=== PATIENT | female | born 1940 | race Caucasian/White ===

== ENCOUNTER 2016-12-13 20:28 | Inpatient (IN) ==
[2016-12-14] MEDS ORDERED: SODIUM CHLORIDE 0.45% 1,000 ML IV ONE (00:04)
[2016-12-14] MEDS ORDERED: ONDANSETRON 4 MG/2 ML VIAL IV PRN (00:55)
[2016-12-14] MEDS ORDERED: ACETAMINOPHEN 500 MG TABLET PO PRN (01:00)
[2016-12-14] MEDS ORDERED: GLUCAGON 1 MG VIAL IM PRN (01:03)
[2016-12-14] MEDS ORDERED: DEXTROSE 50% 25 GM/50 ML VIAL IV PRN (01:03)
[2016-12-14] MEDS ORDERED: SODIUM CHLORIDE 0.9% 1,000 ML IV STA (01:25)
[2016-12-14] MEDS ORDERED: ASPIRIN 325 MG TABLET PO STA (01:39)
[2016-12-14 01:43] LABS: Apearance,Urine CLEAR (Clear); Bacteria,Urine Occasional /HPF (Few); Bilirubin,Urine Negative (Negative); Blood, Urine Small mg/dL (Negative); Glucose,Urine (UA) 50 mg/dL (Negative); Ketones,Urine Negative (Negative); Mucus,Urine Occasional /LPF (Occasional); Nitrite,Urine Negative (Negative); Protein,Urine 30 MG/DL; RBC,Urine 1 /HPF (0-4); Squamous Epithelial Cell,Urine Occasional /HPF (0-10); Urine Color Yellow (Yellow); Urine Specific Gravity 1.012 (1.001-1.035); Urine Urobilinogen < 2.0 EU/DL (0.2-1.0); WBC,Urine 3 /HPF (0-6)
[2016-12-14] MEDS ORDERED: INSULIN LISPRO 100 UNIT/ML SUBCUT ONE (02:51)
[2016-12-14] MEDS ORDERED: SODIUM CHLORIDE 0.9% 500 ML IV ONE (04:24)
[2016-12-14 04:39] LABS: Basophils % 0.1 % (0.0-0.8); Eosinophils # 0.1 10*3/uL (0.0-0.87); Eosinophils % 1.2 % (0.00-10.9); Hematocrit 25.6 VOL% (35.7-47.0); Hemoglobin 7.2 GM/DL (12.0-16.0); Immature Granulocytes % 0.7 %; Immature Granulocytes Absolute 0.05 #; Lymphocytes # 0.9 10*3/uL (1.4-4.0); Mean Corpuscular HGB Conc 28.1 GM/DL (32-36); Mean Corpuscular Hemoglobin 31 PG (27-34); Mean Corpuscular Volume 108.5 FL (87-102); Mean Platelet Volume 12.1 FL (9.6-12.0); Monocytes # 0.4 10*3/uL (0.11-0.8); Monocytes % 5.2 % (1.7-12.7); Neutrophils % 80.8 % (38.7-73.9); Platelet Count 146 T/CUMM (130-400); Red Blood Count 2.36 MC/CUMM (3.8-5.5); Red Cell Distribution Width 15.5 % (9.3-17.3); White Blood Count 7.5 T/CUMM (4-12)
[2016-12-14 04:53] LABS: Calcium 8.1 MG/DL (8.5-10.1)
[2016-12-14 04:54] LABS: Osmolality,Calculated 328.7 MOS/KG (273-304); Potassium 3.9 MMOL/L (3.5-5.1)
[2016-12-14 04:55] LABS: Burr Cells Slight; Elliptocytes Few; Giant Platelets Few; Hypochromasia 1+; Platelet Estimate Normal
[2016-12-14] MEDS: INSULIN LISPRO 100 UNIT/ML SUBCUT SCH ×4 (06:13→21:33)
[2016-12-14 06:20] LABS: Basophils % 0.3 % (0.0-0.8); Eosinophils # 0.1 10*3/uL (0.0-0.87); Eosinophils % 1.2 % (0.00-10.9); Hematocrit 25.7 VOL% (35.7-47.0); Immature Granulocytes % 0.8 %; Immature Granulocytes Absolute 0.06 #; Lymphocytes # 0.9 10*3/uL (1.4-4.0); Lymphocytes % 12.2 % (21.3-54.2); Mean Corpuscular Hemoglobin 30 PG (27-34); Mean Corpuscular Volume 108.4 FL (87-102); Monocytes # 0.4 10*3/uL (0.11-0.8); Monocytes % 4.8 % (1.7-12.7); Neutrophils # 6.2 10*3/uL (1.4-7.4); Neutrophils % 80.7 % (38.7-73.9); Platelet Count 138 T/CUMM (130-400); Red Blood Count 2.37 MC/CUMM (3.8-5.5); Red Cell Distribution Width 15.4 % (9.3-17.3); White Blood Count 7.6 T/CUMM (4-12)
[2016-12-14 06:21] LABS: Hemoglobin 7.2 GM/DL (12.0-16.0)
[2016-12-14] MEDS ORDERED: SODIUM CHLORIDE 0.9% 500 ML IV STA (06:55)
[2016-12-14 07:42] LABS: Folate 23.2 NG/ML (5.4-24.0); Hemoglobin A1 (Alkaline) 97.7 % (96.5-98.5); Hemoglobin A2 (Alkaline) 2.3 % (1.5-3.5); Vitamin B12 359 PG/ML (211-911)
[2016-12-14] MEDS ORDERED: HEPARIN 5,000 UNIT/1 ML VIAL SUBCUT SCH (09:00)
[2016-12-14 09:45] LABS: Calcium 7.9 MG/DL (8.5-10.1); Osmolality,Calculated 321.2 MOS/KG (273-304); Potassium 3.7 MMOL/L (3.5-5.1)
[2016-12-14 10:06] LABS: Sedimentation Rate-Westergren 65 MM/HR (0-30)
[2016-12-14] MEDS ORDERED: HEPARIN 5,000 UNIT/1 ML VIAL ONE (10:39)
[2016-12-14] MEDS ORDERED: ASPIRIN CHEW 81 MG TABLET PO ONE (10:39)
[2016-12-14] MEDS: ASPIRIN CHEW 81 MG TABLET PO SCH (10:47)
[2016-12-14] MEDS ORDERED: ALBUTEROL 2.5 MG/3 ML NEB RESP TX PRN (12:05)
[2016-12-14] MEDS ORDERED: SODIUM CHLORIDE 0.45% 1,000 ML IV SCH (12:30)
[2016-12-14] MEDS ORDERED: DONEPEZIL 10 MG TABLET PO SCH (13:00)
[2016-12-14] MEDS ORDERED: LEVOFLOXACIN INJ 750 MG in PREMIX 1 EACH IV SCH (13:00)
[2016-12-14] MEDS ORDERED: SODIUM CHLORIDE 0.9% 250 ML IV PRN (13:01)
[2016-12-14] MEDS: ALBUTEROL/IPRATROPIUM 3 ML NEB RESP TX SCH ×2 (13:17→20:34)
[2016-12-14] MEDS: BENZONATATE 100 MG CAPSULE PO SCH ×2 (15:01→21:33)
[2016-12-14] MEDS ORDERED: FUROSEMIDE 40 MG/4 ML VIAL IV ONE (17:13)
[2016-12-14] MEDS: SODIUM CHLORIDE 0.45% 1,000 ML IV SCH (17:32)
[2016-12-14] MEDS: HALOPERIDOL 5 MG/ML AMP IV PRN (20:22)
[2016-12-14] MEDS ORDERED: METOPROLOL TARTRATE 25 MG TABLET PO SCH (21:00)
[2016-12-14] MEDS: SIMVASTATIN 20 MG TABLET PO SCH (21:33)
[2016-12-14] MEDS ORDERED: ZIPRASIDONE 20 MG/1 ML VIAL IM PRN (22:41)
[2016-12-15] MEDS: ALBUTEROL/IPRATROPIUM 3 ML NEB RESP TX SCH ×5 (01:15→20:28)
[2016-12-15 04:56] LABS: Basophils % 0.2 % (0.0-0.8); Eosinophils % 0.2 % (0.00-10.9); Hematocrit 39.8 VOL% (35.7-47.0); Hemoglobin 12.4 GM/DL (12.0-16.0); Immature Granulocytes % 0.5 %; Immature Granulocytes Absolute 0.05 #; Lymphocytes # 0.6 10*3/uL (1.4-4.0); Lymphocytes % 6.5 % (21.3-54.2); Mean Corpuscular HGB Conc 31.2 GM/DL (32-36); Mean Corpuscular Hemoglobin 29 PG (27-34); Mean Corpuscular Volume 94.1 FL (87-102); Mean Platelet Volume 12.6 FL (9.6-12.0); Monocytes # 0.6 10*3/uL (0.11-0.8); Monocytes % 5.6 % (1.7-12.7); Neutrophils # 8.6 10*3/uL (1.4-7.4); Platelet Count 134 T/CUMM (130-400); Red Blood Count 4.23 MC/CUMM (3.8-5.5); Red Cell Distribution Width 17.3 % (9.3-17.3); White Blood Count 9.9 T/CUMM (4-12)
[2016-12-15 05:26] LABS: Calcium 8.1 MG/DL (8.5-10.1); Magnesium 1.7 MG/DL (1.8-2.4); Osmolality,Calculated 322.2 MOS/KG (273-304)
[2016-12-15 05:32] LABS: Risk Ratio 2.77
[2016-12-15 05:39] LABS: Burr Cells Slight; Giant Platelets Few; Hypochromasia 1+; Lymphocytes 7 % (20-55); Ovalocytes Slight; Platelet Estimate Normal; Segmented Neutrophils 88 % (50-85); Total Cells Counted 100
[2016-12-15] MEDS: SODIUM CHLORIDE 0.45% 1,000 ML IV SCH (09:19)
[2016-12-15] MEDS: INSULIN LISPRO 100 UNIT/ML SUBCUT SCH ×4 (09:20→21:32)
[2016-12-15] MEDS: HALOPERIDOL 5 MG/ML AMP IV PRN (09:22)
[2016-12-15] MEDS: BENZONATATE 100 MG CAPSULE PO SCH ×3 (09:22→21:31)
[2016-12-15] MEDS: ASPIRIN CHEW 81 MG TABLET PO SCH (09:22)
[2016-12-15] MEDS: methylPREDNISolone SOD SUC 40 MG/1 ML VIAL IV SCH ×3 (10:21→21:31)
[2016-12-15] MEDS: PANTOPRAZOLE 40 MG VIAL IV SCH (10:22)
[2016-12-15] MEDS: SIMVASTATIN 20 MG TABLET PO SCH (21:31)
[2016-12-15] MEDS: SODIUM CHLORIDE 23.4% CONC INJ 38.5 MEQ in STERILE WATER INJ 1,000 ML IV SCH (21:31)
[2016-12-16] MEDS: ALBUTEROL/IPRATROPIUM 3 ML NEB RESP TX SCH ×7 (00:23→22:05)
[2016-12-16] MEDS: methylPREDNISolone SOD SUC 40 MG/1 ML VIAL IV SCH ×4 (04:16→23:42)
[2016-12-16] MEDS: BENZONATATE 100 MG CAPSULE PO SCH ×4 (08:30→23:36)
[2016-12-16] MEDS: ASPIRIN CHEW 81 MG TABLET PO SCH (08:30)
[2016-12-16] MEDS: INSULIN LISPRO 100 UNIT/ML SUBCUT SCH ×4 (08:30→23:40)
[2016-12-16] MEDS: PANTOPRAZOLE 40 MG VIAL IV SCH (08:30)
[2016-12-16] MEDS: SODIUM CHLORIDE 23.4% CONC INJ 38.5 MEQ in STERILE WATER INJ 1,000 ML IV SCH ×2 (08:54→10:48)
[2016-12-16 09:41] LABS: Calcium 8.8 MG/DL (8.5-10.1); Osmolality,Calculated 318.1 MOS/KG (273-304); Potassium 4.2 MMOL/L (3.5-5.1)
[2016-12-16 09:46] LABS: Basophils % 0.1 % (0.0-0.8); Hematocrit 40.5 VOL% (35.7-47.0); Immature Granulocytes % 0.6 %; Immature Granulocytes Absolute 0.05 #; Lymphocytes # 0.3 10*3/uL (1.4-4.0); Lymphocytes % 3.7 % (21.3-54.2); Mean Corpuscular HGB Conc 32.1 GM/DL (32-36); Mean Corpuscular Hemoglobin 30 PG (27-34); Mean Corpuscular Volume 93.8 FL (87-102); Mean Platelet Volume 12.2 FL (9.6-12.0); Monocytes # 0.1 10*3/uL (0.11-0.8); Monocytes % 1.1 % (1.7-12.7); Neutrophils # 8.5 10*3/uL (1.4-7.4); Neutrophils % 94.5 % (38.7-73.9); Platelet Count 201 T/CUMM (130-400); Red Blood Count 4.32 MC/CUMM (3.8-5.5); Red Cell Distribution Width 16.9 % (9.3-17.3)
[2016-12-16 10:04] LABS: Giant Platelets Few; Lymphocytes 2 % (20-55); Platelet Estimate Adequate; Segmented Neutrophils 96 % (50-85); Total Cells Counted 100
[2016-12-16 10:20] LABS: Calcium 8.9 MG/DL (8.5-10.1); Magnesium 1.8 MG/DL (1.8-2.4); Osmolality,Calculated 318.9 MOS/KG (273-304)
[2016-12-16] MEDS: FUROSEMIDE 40 MG/4 ML VIAL IV SCH (13:18)
[2016-12-16] MEDS: LEVOFLOXACIN INJ 500 MG in PREMIX 1 EACH IV SCH (13:18)
[2016-12-16] MEDS ORDERED: DEXTROSE 5% NACL 0.22% 1,000 ML IV SCH (13:30)
[2016-12-16] MEDS ORDERED: DIGOXIN 0.5 MG/2 ML AMP IV ONE ×3 (21:28→21:49)
[2016-12-16] MEDS ORDERED: LEVALBUTEROL 1.25 MG/3 ML NEB RESP TX STA (21:46)
[2016-12-16] MEDS ORDERED: DILTIAZEM 50 MG/10 ML VIAL IV ONE ×3 (21:56→22:15)
[2016-12-16] MEDS ORDERED: SODIUM CHLORIDE 23.4% CONC INJ 38.5 MEQ in STERILE WATER INJ 1,000 ML IV ONE ×2 (22:00→23:00)
[2016-12-16] MEDS ORDERED: ETOMIDATE 20 MG/10 ML VIAL IV ONE ×2 (22:02→22:24)
[2016-12-16] MEDS ORDERED: SUCCINYLCHOLINE 200 MG/10 ML VIAL ONE (22:02)
[2016-12-16] MEDS ORDERED: HEPARIN/NACL 0.9% 2 UNITS/ML 500 ML IV ONE (22:05)
[2016-12-16] MEDS: SIMVASTATIN 20 MG TABLET PO SCH (22:16)
[2016-12-16] MEDS ORDERED: DILTIAZEM 100 MG VIAL.ADD IV ONE (22:17)
[2016-12-16] MEDS ORDERED: SUCCINYLCHOLINE 200 MG/10 ML VIAL IV ONE (22:24)
[2016-12-16] MEDS ORDERED: MIDAZOLAM 2 MG/2 ML VIAL IV ONE (22:28)
[2016-12-16] MEDS ORDERED: fentaNYL 100 MCG/2 ML VIAL IV ONE (22:28)
[2016-12-16] MEDS ORDERED: fentaNYL 100 MCG/2 ML VIAL ONE (22:28)
[2016-12-16] MEDS ORDERED: MIDAZOLAM 10 MG/2 ML VIAL ONE (22:28)
[2016-12-16] MEDS ORDERED: RACEPINEPHRINE 0.5 ML NEB RESP TX ONE (22:30)
[2016-12-16] MEDS ORDERED: DILTIAZEM INJ 100 MG in SODIUM CHLORIDE 0.9% 100 ML IV SCH (22:30)
[2016-12-16] MEDS ORDERED: ALBUTEROL/IPRATROPIUM 3 ML NEB RESP TX ONE (22:30)
[2016-12-16] MEDS ORDERED: NOREPINEPHRINE 8 MG in SODIUM CHLORIDE 0.9% 242 ML IV PRN (22:56)
[2016-12-16] MEDS ORDERED: SODIUM CHLORIDE 23.4% CONC INJ 38.5 MEQ in STERILE WATER INJ 1,000 ML IV SCH (23:00)
[2016-12-16 23:09] LABS: ABG Base Excess -12.1 MMOL/L (-2.5-2.5); ABG HCO3 13.4 MMOL/L (20-26); ABG Oxygen Saturation 99.3 % (95-100); ABG PCO2 29.7 MM HG (35-48); ABG PH 7.272 (7.35-7.45); ABG PO2 385.2 MM HG (80-95); ABG TCO2 14.3 MMOL/L (23-27)
[2016-12-16] MEDS ORDERED: LINEZOLID 600 MG/300 ML PREMIX IV ONE (23:09)
[2016-12-16 23:14] LABS: Basophils % 0.1 % (0.0-0.8); Hematocrit 36.8 VOL% (35.7-47.0); Immature Granulocytes % 0.6 %; Immature Granulocytes Absolute 0.07 #; Lymphocytes # 0.4 10*3/uL (1.4-4.0); Lymphocytes % 3.2 % (21.3-54.2); Mean Corpuscular HGB Conc 32.6 GM/DL (32-36); Mean Corpuscular Hemoglobin 30 PG (27-34); Mean Corpuscular Volume 92.9 FL (87-102); Mean Platelet Volume 12.4 FL (9.6-12.0); Monocytes # 0.4 10*3/uL (0.11-0.8); Monocytes % 3.4 % (1.7-12.7); Neutrophils # 10.1 10*3/uL (1.4-7.4); Neutrophils % 92.7 % (38.7-73.9); Platelet Count 194 T/CUMM (130-400); Red Blood Count 3.96 MC/CUMM (3.8-5.5); Red Cell Distribution Width 17.3 % (9.3-17.3); White Blood Count 10.9 T/CUMM (4-12)
[2016-12-16 23:30] LABS: Lactic Acid 1.3 MMOL/L (0.4-2.0)
[2016-12-16] MEDS: fentaNYL INJ 1,250 MCG in SODIUM CHLORIDE 0.9% 225 ML IV SCH (23:30)
[2016-12-16] MEDS: MIDAZOLAM 100 MG in SODIUM CHLORIDE 0.9% 80 ML IV SCH (23:46)
[2016-12-17] MEDS ORDERED: INSULIN LISPRO 100 UNIT/ML SUBCUT SCH
[2016-12-17] MEDS: LINEZOLID INJ 600 MG in PREMIX 1 EACH IV SCH ×3 (00:33→23:37)
[2016-12-17 00:38] LABS: Albumin 2.8 G/DL (3.4-5.0); Bilirubin,Total 1.3 MG/DL (0.2-1.0); Total Protein 5.9 G/DL (6.4-8.3)
[2016-12-17 00:39] LABS: Potassium 3.6 MMOL/L (3.5-5.1)
[2016-12-17 00:40] LABS: CKMB % 1.1 %; Troponin I Only 0.818 NG/ML (0.00-0.045)
[2016-12-17 00:41] LABS: Calcium 7.6 MG/DL (8.5-10.1)
[2016-12-17] MEDS ORDERED: NOREPINEPHRINE 4 MG/4 ML VIAL IV ONE ×2 (01:06→01:07)
[2016-12-17] MEDS: NOREPINEPHRINE 16 MG in SODIUM CHLORIDE 0.9% 234 ML IV SCH (01:29)
[2016-12-17] MEDS: PIPERACILLIN/TAZOBACTAM 3,375 MG in SODIUM CHLORIDE 0.9% 100 ML IV SCH ×2 (01:55→14:57)
[2016-12-17] MEDS ORDERED: CALCIUM CHLORIDE 1,000 MG/10 ML SYRINGE IV ONE (02:52)
[2016-12-17] MEDS ORDERED: SODIUM CHLORIDE 0.9% 1,000 ML IV SCH (03:00)
[2016-12-17 03:19] LABS: ABG HCO3 11.3 MMOL/L (20-26); ABG Oxygen Saturation 98.3 % (95-100)
[2016-12-17 03:24] LABS: ABG PH 7.123 (7.35-7.45)
[2016-12-17] MEDS ORDERED: SODIUM BICARBONATE 50 MEQ/50 ML SYRINGE IV ONE ×2 (03:28→03:29)
[2016-12-17 03:54] LABS: Basophils % 0.1 % (0.0-0.8); Hematocrit 40.1 VOL% (35.7-47.0); Hemoglobin 12.7 GM/DL (12.0-16.0); Immature Granulocytes % 1.2 %; Lymphocytes # 0.3 10*3/uL (1.4-4.0); Lymphocytes % 1.7 % (21.3-54.2); Mean Corpuscular HGB Conc 31.7 GM/DL (32-36); Mean Corpuscular Hemoglobin 30 PG (27-34); Mean Corpuscular Volume 94.6 FL (87-102); Mean Platelet Volume 13.2 FL (9.6-12.0); Monocytes % 6.3 % (1.7-12.7); NRBC # 0.02 10*3/uL; Neutrophils # 14.8 10*3/uL (1.4-7.4); Neutrophils % 90.7 % (38.7-73.9); Platelet Count 247 T/CUMM (130-400); Red Blood Count 4.24 MC/CUMM (3.8-5.5); Red Cell Distribution Width 17.2 % (9.3-17.3); White Blood Count 16.3 T/CUMM (4-12)
[2016-12-17 03:57] LABS: Band Neutrophils 2 % (0-10); Lymphocytes 5 % (20-55); Platelet Estimate Normal; Segmented Neutrophils 90 % (50-85); Total Cells Counted 100
[2016-12-17 04:25] LABS: ABG Base Excess -15.1 MMOL/L (-2.5-2.5); ABG HCO3 14.2 MMOL/L (20-26); ABG Oxygen Saturation 95.1 % (95-100); ABG PCO2 46.2 MM HG (35-48); ABG PO2 90.4 MM HG (80-95); ABG TCO2 15.6 MMOL/L (23-27)
[2016-12-17 04:28] LABS: ABG PH 7.105 (7.35-7.45)
[2016-12-17] MEDS: methylPREDNISolone SOD SUC 40 MG/1 ML VIAL IV SCH ×4 (04:38→21:42)
[2016-12-17] MEDS: ALBUTEROL/IPRATROPIUM 3 ML NEB RESP TX SCH ×5 (04:38→21:03)
[2016-12-17] MEDS: METOPROLOL TARTRATE 5 MG/5 ML VIAL IV PRN ×3 (04:59→19:28)
[2016-12-17] MEDS ORDERED: SODIUM BICARB INJ 100 MEQ in DEXTROSE 5% 1,000 ML IV SCH (05:00)
[2016-12-17 05:07] LABS: Calcium 8.1 MG/DL (8.5-10.1); Magnesium 1.6 MG/DL (1.8-2.4); Osmolality,Calculated 301.5 MOS/KG (273-304)
[2016-12-17 05:43] LABS: Burr Cells 1+; Lymphocytes 2 % (20-55); Platelet Estimate Normal; Segmented Neutrophils 89 % (50-85); Total Cells Counted 100
[2016-12-17 05:48] LABS: INR 0.9; Partial Thromboplastin Time 26.6 SECS (0-40)
[2016-12-17 05:50] LABS: ABG Base Excess -13.5 MMOL/L (-2.5-2.5); ABG HCO3 12.7 MMOL/L (20-26); ABG Oxygen Saturation 99.2 % (95-100); ABG PCO2 30.8 MM HG (35-48); ABG PH 7.232 (7.35-7.45); ABG PO2 231.2 MM HG (80-95); ABG TCO2 13.6 MMOL/L (23-27)
[2016-12-17] MEDS ORDERED: MAGNESIUM SULF RIDER 4 GM in PREMIX 1 EACH IV PRN (05:50)
[2016-12-17] MEDS ORDERED: MAGNESIUM SULF RIDER 2 GM in PREMIX 1 EACH IV PRN (05:50)
[2016-12-17 07:14] LABS: Calcium 8.8 MG/DL (8.5-10.1); Magnesium 1.8 MG/DL (1.8-2.4); Osmolality,Calculated 307.2 MOS/KG (273-304); Potassium 4.1 MMOL/L (3.5-5.1)
[2016-12-17] MEDS: INSULIN LISPRO 100 UNIT/ML SUBCUT SCH ×4 (08:41→23:32)
[2016-12-17] MEDS: PANTOPRAZOLE 40 MG VIAL IV SCH (08:42)
[2016-12-17] MEDS: BENZONATATE 100 MG CAPSULE PO SCH ×3 (08:42→21:42)
[2016-12-17] MEDS: ASPIRIN CHEW 81 MG TABLET PO SCH (08:42)
[2016-12-17] MEDS: FUROSEMIDE 40 MG/4 ML VIAL IV SCH (08:42)
[2016-12-17] MEDS: levETIRAcetam INJ 500 MG in SODIUM CHLORIDE 0.9% 50 ML IV SCH ×2 (11:54→23:36)
[2016-12-17] MEDS: SODIUM BICARB INJ 100 MEQ in STERILE WATER INJ 1,000 ML IV SCH ×3 (12:42→23:46)
[2016-12-17] MEDS: SIMVASTATIN 20 MG TABLET PO SCH (21:42)
[2016-12-17] MEDS: MIDAZOLAM 100 MG in SODIUM CHLORIDE 0.9% 80 ML IV SCH (23:46)
[2016-12-17] MEDS: fentaNYL INJ 1,250 MCG in SODIUM CHLORIDE 0.9% 225 ML IV SCH (23:46)
[2016-12-18] MEDS: ALBUTEROL/IPRATROPIUM 3 ML NEB RESP TX SCH ×6 (00:15→20:31)
[2016-12-18] MEDS: METOPROLOL TARTRATE 5 MG/5 ML VIAL IV PRN (01:52)
[2016-12-18] MEDS: PIPERACILLIN/TAZOBACTAM 3,375 MG in SODIUM CHLORIDE 0.9% 100 ML IV SCH ×2 (01:53→14:09)
[2016-12-18] MEDS: SODIUM BICARB INJ 100 MEQ in STERILE WATER INJ 1,000 ML IV SCH ×3 (01:58→21:08)
[2016-12-18 02:12] LABS: ABG Base Excess -3.5 MMOL/L (-2.5-2.5); ABG HCO3 21.5 MMOL/L (20-26); ABG Oxygen Saturation 99.7 % (95-100); ABG PCO2 33.1 MM HG (35-48); ABG PH 7.399 (7.35-7.45); ABG TCO2 18.2 MMOL/L (23-27)
[2016-12-18] MEDS: NOREPINEPHRINE 16 MG in SODIUM CHLORIDE 0.9% 234 ML IV SCH (02:17)
[2016-12-18] MEDS ORDERED: METOPROLOL TARTRATE 5 MG/5 ML VIAL IV ONE (02:18)
[2016-12-18 02:51] LABS: Basophils % 0.1 % (0.0-0.8); Hematocrit 34.4 VOL% (35.7-47.0); Hemoglobin 11.9 GM/DL (12.0-16.0); Immature Granulocytes % 0.8 %; Immature Granulocytes Absolute 0.11 #; Lymphocytes # 0.2 10*3/uL (1.4-4.0); Lymphocytes % 1.3 % (21.3-54.2); Mean Corpuscular HGB Conc 34.6 GM/DL (32-36); Mean Corpuscular Hemoglobin 30 PG (27-34); Mean Corpuscular Volume 86.4 FL (87-102); Mean Platelet Volume 13.1 FL (9.6-12.0); Monocytes # 0.4 10*3/uL (0.11-0.8); Monocytes % 2.9 % (1.7-12.7); NRBC # 0.02 10*3/uL; Neutrophils # 12.4 10*3/uL (1.4-7.4); Neutrophils % 94.9 % (38.7-73.9); Platelet Count 198 T/CUMM (130-400); Red Blood Count 3.98 MC/CUMM (3.8-5.5); Red Cell Distribution Width 15.6 % (9.3-17.3); White Blood Count 13.1 T/CUMM (4-12)
[2016-12-18 02:56] LABS: Calcium 7.5 MG/DL (8.5-10.1); Osmolality,Calculated 294.2 MOS/KG (273-304); Potassium 3.3 MMOL/L (3.5-5.1)
[2016-12-18 03:18] LABS: Band Neutrophils 3 % (0-10); Lymphocytes 1 % (20-55); Segmented Neutrophils 95 % (50-85)
[2016-12-18 03:19] LABS: Burr Cells 1+; Ovalocytes 2+; Platelet Estimate Normal
[2016-12-18 03:20] LABS: Total Cells Counted 100
[2016-12-18] MEDS: INSULIN LISPRO 100 UNIT/ML SUBCUT SCH ×3 (05:10→18:24)
[2016-12-18] MEDS: methylPREDNISolone SOD SUC 40 MG/1 ML VIAL IV SCH ×4 (05:11→22:30)
[2016-12-18] MEDS ORDERED: METOPROLOL SUCCINATE XL 25 MG TABLET PO SCH (09:00)
[2016-12-18] MEDS: PANTOPRAZOLE 40 MG VIAL IV SCH (09:54)
[2016-12-18] MEDS: FUROSEMIDE 40 MG/4 ML VIAL IV SCH (09:57)
[2016-12-18] MEDS: ASPIRIN CHEW 81 MG TABLET PO SCH (10:04)
[2016-12-18] MEDS: BENZONATATE 100 MG CAPSULE PO SCH ×3 (10:06→21:07)
[2016-12-18] MEDS: levETIRAcetam INJ 500 MG in SODIUM CHLORIDE 0.9% 50 ML IV SCH (12:57)
[2016-12-18] MEDS: LINEZOLID INJ 600 MG in PREMIX 1 EACH IV SCH (13:54)
[2016-12-18] MEDS: LEVOFLOXACIN INJ 500 MG in PREMIX 1 EACH IV SCH (14:08)
[2016-12-18] MEDS ORDERED: FUROSEMIDE 100 MG/10 ML VIAL IV ONE (15:27)
[2016-12-18] MEDS ORDERED: POTASSIUM CHLORIDE RIDER 20 MEQ in PREMIX 1 EACH IV PRN (16:02)
[2016-12-18] MEDS ORDERED: DIGOXIN 0.5 MG/2 ML AMP IV ONE (16:11)
[2016-12-18] MEDS: SIMVASTATIN 20 MG TABLET PO SCH (21:07)
[2016-12-18] MEDS: fentaNYL INJ 1,250 MCG in SODIUM CHLORIDE 0.9% 225 ML IV SCH ×2 (21:18→23:21)
[2016-12-18] MEDS: MIDAZOLAM 100 MG in SODIUM CHLORIDE 0.9% 80 ML IV SCH ×2 (21:20→23:21)
[2016-12-19] MEDS: ALBUTEROL/IPRATROPIUM 3 ML NEB RESP TX SCH ×7 (00:13→21:58)
[2016-12-19] MEDS: INSULIN LISPRO 100 UNIT/ML SUBCUT SCH ×4 (01:19→17:03)
[2016-12-19] MEDS: levETIRAcetam INJ 500 MG in SODIUM CHLORIDE 0.9% 50 ML IV SCH ×2 (01:21→11:22)
[2016-12-19] MEDS: LINEZOLID INJ 600 MG in PREMIX 1 EACH IV SCH ×2 (01:21→13:22)
[2016-12-19] MEDS: PIPERACILLIN/TAZOBACTAM 3,375 MG in SODIUM CHLORIDE 0.9% 100 ML IV SCH ×2 (01:22→15:36)
[2016-12-19] MEDS: NOREPINEPHRINE 16 MG in SODIUM CHLORIDE 0.9% 234 ML IV SCH (01:30)
[2016-12-19] MEDS: METOPROLOL TARTRATE 5 MG/5 ML VIAL IV PRN (03:35)
[2016-12-19] MEDS: methylPREDNISolone SOD SUC 40 MG/1 ML VIAL IV SCH ×3 (04:48→15:37)
[2016-12-19 05:36] LABS: ABG Base Excess 3.8 MMOL/L (-2.5-2.5); ABG HCO3 27.6 MMOL/L (20-26); ABG Oxygen Saturation 98.7 % (95-100); ABG PCO2 38.7 MM HG (35-48); ABG PH 7.471 (7.35-7.45); ABG PO2 172.8 MM HG (80-95); ABG TCO2 28.8 MMOL/L (23-27)
[2016-12-19 05:39] LABS: Hematocrit 29.5 VOL% (35.7-47.0); Hemoglobin 10.4 GM/DL (12.0-16.0); Immature Granulocytes % 0.4 %; Immature Granulocytes Absolute 0.05 #; Lymphocytes # 0.1 10*3/uL (1.4-4.0); Lymphocytes % 1.2 % (21.3-54.2); Mean Corpuscular HGB Conc 35.3 GM/DL (32-36); Mean Corpuscular Hemoglobin 30 PG (27-34); Mean Corpuscular Volume 85.8 FL (87-102); Mean Platelet Volume 12.8 FL (9.6-12.0); Monocytes # 0.5 10*3/uL (0.11-0.8); Monocytes % 4.6 % (1.7-12.7); Neutrophils # 10.5 10*3/uL (1.4-7.4); Neutrophils % 93.8 % (38.7-73.9); Platelet Count 178 T/CUMM (130-400); Red Blood Count 3.44 MC/CUMM (3.8-5.5); White Blood Count 11.2 T/CUMM (4-12)
[2016-12-19 06:04] LABS: Calcium 6.7 MG/DL (8.5-10.1); Magnesium 2.1 MG/DL (1.8-2.4); Osmolality,Calculated 288.4 MOS/KG (273-304); Potassium 3.9 MMOL/L (3.5-5.1)
[2016-12-19 06:06] LABS: Hypochromasia Slight; Lymphocytes 2 % (20-55); Ovalocytes 1+; Segmented Neutrophils 92 % (50-85); Total Cells Counted 100
[2016-12-19 06:07] LABS: Microcytosis 1+; Platelet Estimate Adequate
[2016-12-19] MEDS: PANTOPRAZOLE 40 MG VIAL IV SCH (08:03)
[2016-12-19] MEDS: ASPIRIN CHEW 81 MG TABLET PO SCH (08:03)
[2016-12-19] MEDS: BENZONATATE 100 MG CAPSULE PO SCH ×2 (08:03→15:37)
[2016-12-19] MEDS: FUROSEMIDE 40 MG/4 ML VIAL IV SCH (08:04)
[2016-12-19] MEDS: SODIUM BICARB INJ 100 MEQ in STERILE WATER INJ 1,000 ML IV SCH ×2 (08:15→21:57)
[2016-12-19] MEDS ORDERED: ASCORBIC ACID 500 MG TABLET PO SCH (10:00)
[2016-12-19] MEDS ORDERED: MORPHINE 2 MG/1 ML SYRINGE IV ONE ×2 (15:10→15:16)
[2016-12-19] MEDS ORDERED: LORazepam 2 MG/1 ML VIAL IV PRN ×2 (15:24→15:30)
[2016-12-19] MEDS ORDERED: MORPHINE 2 MG/1 ML SYRINGE IV PRN ×3 (19:19→19:51)
[2016-12-20 16:04] VITALS: BP 154/56
== END 2016-12-20 20:00 | disposition hospice, home (50) | DRG 871 ==
LOC: N.ED 20:28 → N.EDINP 12-14 00:44 → SUATTDRO 12-14 00:44 → N.CC 12-14 12:29 → N.TELEN 12-19 20:30
PROVIDERS: ADMIT Internal Medicine; ATTEND Hospitalist